=== PATIENT | female | born 2000 | race Caucasian/White ===

== ENCOUNTER 2024-04-01 12:25 | Emergency (ER) | payer BC ==
[~2024-04-01] VITALS: Ht 165.1 cm; Wt 59.4 kg
[2024-04-01] MEDS ORDERED: PRED50TA PO (13:25)
[2024-04-01] MEDS ORDERED: AMOX-430 PO (13:25)
[2024-04-01] MEDS ORDERED: predniSONE 50 MG TABLET ONE (13:28)
[2024-04-01] MEDS ORDERED: AMOXICILLIN-CLAVUL 875-125MG TABLET ONE (13:28)
[2024-04-01] MEDS: AMOXICILLIN-CLAVUL 875-125MG TABLET PO ONE (13:34)
[2024-04-01] MEDS: predniSONE 50 MG TABLET PO ONE (13:34)
[2024-04-01 13:42] VITALS: BP 132/76; TEMP 98; O2SAT 99
== END 2024-04-01 13:43 | disposition home or self-care (01) ==
LOC: ER 12:28
DX: J01.90 Acute sinusitis, unspecified (principal); Z79.899 Other long term (current) drug therapy
CPT/HCPCS: 99283; J7512; A4606; A4663